=== PATIENT | male | born 1970 | race African-American/Black ===

== ENCOUNTER 2021-11-06 08:26 | Emergency (ER) | payer MEDICARE | END 2021-11-06 14:27 | disposition home or self-care (01) | LOC: CSHERS 08:26 | DX: L02.411 Cutaneous abscess of right axilla (principal) | CPT/HCPCS: 99282 ==

== ENCOUNTER 2022-04-20 14:36 | Emergency (ER) | payer MEDICARE | END 2022-04-20 16:15 | disposition left against medical advice (07) | LOC: CSHERS 14:36 | DX: Z53.21 Procedure and treatment not carried out due to patient leaving prior to being seen by health care provider (principal) ==

== ENCOUNTER 2024-03-03 07:48 | Outpatient (CLI) | payer MEDICARE | END 2024-03-03 07:49 | disposition home or self-care (01) | LOC: CSHCT 07:48 | PROVIDERS: ATTEND Urology | DX: N20.0 Calculus of kidney (principal); M10.9 Gout, unspecified; Z95.828 Presence of other vascular implants and grafts; K57.30 Diverticulosis of large intestine without perforation or abscess without bleeding | CPT/HCPCS: 74176 ==